=== PATIENT | female | born 1995 ===

== ENCOUNTER 2022-02-03 03:43 | Outpatient (CLI) | payer BC, SELFPAY ==
[2022-02-04 11:02] LABS: Measles IgG Antibody Positive (See Note); Mumps Antibody IgG Positive (See Note); Rubella IgG Ab (UVM) Positive (See Note); Varicella IgG Antibody Positive (See Note)
[2022-02-04 15:17] LABS: Chlamydia Result Negative (Negative); GC Result Negative (Negative)
[2022-02-05 16:12] LABS: Syphilis IgG w/Reflex Nonreactive (Nonreactive)
[2022-02-07 13:56] LABS: TB Interpretation Positive (Negative); TB2 Ag minus Nil 0.57 IU/mL
== END 2022-02-03 03:44 | disposition home or self-care (01) ==
LOC: LBO 03:44
PROVIDERS: Visit Provider Family Medicine
DX: Z11.1 Encounter for screening for respiratory tuberculosis (principal); Z11.3 Encounter for screening for infections with a predominantly sexual mode of transmission; Z11.59 Encounter for screening for other viral diseases
CPT/HCPCS: 36415; 86787; 87491; 87591; 86480; 86735; 86762; 86765; 86780

== ENCOUNTER 2022-02-14 14:14 | Outpatient (CLI) | payer BC, SELFPAY ==
--- NOTE | 2022-02-14 14:13 | DI.RAD_ITS ---
Exam(s) XR CHEST 2V PA LATERAL EXAM: XR CHEST 2V PA LATERAL CLINICAL HISTORY: TB SCREEN POSITIVE, EVALUATE FOR SIGNS OF ACTIVE TB. TECHNIQUE: 2D digital imaging was performed. COMPARISON: No exams were available for comparison FINDINGS: 2 views: Heart size is normal. The mediastinum is not widened. Lungs are clear. No infiltrates nor pleural effusions. IMPRESSION: No acute pulmonary findings. DATA REPOSITORY: RADIATION DOSE DELIVERED:
== END 2022-02-14 14:34 ==
PROVIDERS: Visit Provider Family Medicine
DX: R76.11 Nonspecific reaction to tuberculin skin test without active tuberculosis (principal)
CPT/HCPCS: 71046

== ENCOUNTER 2022-02-16 10:33 | Outpatient (REF) | payer BC, SELFPAY ==
[2022-02-16 16:40] LABS: Abs Immature Grans 0.02 10^3/uL (0.0-0.06); Absolute Basophil Count 0.03 10^3/uL (0.0-0.2); Absolute Eosinophil Count 0.17 10^3/uL (0.0-0.7); Absolute Monocyte Count 0.39 10^3/uL (0.1-0.8); Absolute Neutrophil Count 3.85 10^3/uL (1.2-6.7); Basophils % 0.5; Eosinophils % 2.6; HCT 41.3 % (36.0-46.0); Immature Grans % 0.3; MCH 26.2 pg (27.0-33.0); MCHC 31.5 % (32.0-36.0); MCV 83.3 fL (80-95); MPV 11.9 fL (8.0-11.0); Monocytes % 5.9; Neutrophils % 58.7; Nucleated RBC 0 %; Platelet Count 276 10^3/uL (130-400); RBC 4.96 10^6/uL (3.93-5.22); RDW 13.1 % (11.7-14.6); RDW-SD 39.6 fL; WBC 6.56 10^3/uL (4.4-10.8)
[2022-02-16 17:02] LABS: ALT 26 U/L (14-59); AST 19 U/L (15-37); Albumin 3.9 g/dL (3.4-5.0); Alkaline Phosphatase 82 U/L (46-116); Anion Gap 9.9 mmol/L (3-11); BUN 13 mg/dL (7-18); Bilirubin, Total 0.2 mg/dL (0.2-1.0); CO2 26.1 mmol/L (21.0-32.0); CREATININE 0.6 mg/dL (0.55-1.02); Calcium 9.5 mg/dL (8.5-10.1); Chloride 105 mmol/L (98-107); Glucose 85 mg/dL (74-106); Potassium 4.4 mmol/L (3.5-5.1); Sodium 141 mmol/L (136-145); Total Protein 7.6 g/dL (6.4-8.2)
[2022-02-17 09:53] LABS: HBs Antibody, Quant <3.1 mIU/mL (See Note); Hepatitis B Surface Ab Negative (See Note)
[2022-02-17 11:09] LABS: HIV-1/2 Ag & Ab Screen Negative (Negative)
[2022-02-17 11:16] LABS: Hepatitis C Ab w Rflx HCV PCR Negative (Negative)
[2022-02-17 11:18] LABS: Hep A Total Ab w Rflx IgM Positive (Negative)
[2022-02-17 12:33] LABS: Hepatitis B Surface Ag Negative (Negative)
[2022-02-17 13:44] LABS: Hep A Antibody IgM Negative (Negative)
== END 2022-02-16 10:34 | disposition home or self-care (01) ==
LOC: NCHCN 10:33
PROVIDERS: Visit Provider Family Medicine
DX: Z22.7 Latent tuberculosis (principal); Z51.81 Encounter for therapeutic drug level monitoring; Z11.59 Encounter for screening for other viral diseases; Z11.4 Encounter for screening for human immunodeficiency virus [HIV]; Z00.00 Encounter for general adult medical examination without abnormal findings
CPT/HCPCS: 80053; 86706; 86709; 86803; 87340; 87389; 85025

== ENCOUNTER 2023-10-02 18:13 | Outpatient (REF) | payer BC, SELFPAY ==
[2023-10-02 19:35] LABS: Hemoglobin A1C 5.6 % (<5.7)
[2023-10-02 19:42] LABS: ALT 25 U/L (14-59); AST 21 U/L (15-37); Albumin 3.9 g/dL (3.4-5.0); Alkaline Phosphatase 74 U/L (46-116); Anion Gap 8.8 mmol/L (3-11); BUN 12 mg/dL (7-18); Bilirubin, Total 0.3 mg/dL (0.2-1.0); CO2 26.2 mmol/L (21.0-32.0); CREATININE 0.9 mg/dL (0.55-1.02); Calcium 10.1 mg/dL (8.5-10.1); Chloride 104 mmol/L (98-107); Estimated GFR 88.75 (mL/min/1.73m2); Glucose 101 mg/dL (74-106); Potassium 3.9 mmol/L (3.5-5.1); Sodium 139 mmol/L (136-145); Total Protein 8.3 g/dL (6.4-8.2)
== END 2023-10-02 18:14 | disposition home or self-care (01) ==
LOC: NCHCN 18:13
PROVIDERS: Visit Provider Nurse Practitioner Family
DX: Z00.00 Encounter for general adult medical examination without abnormal findings (principal); Z13.1 Encounter for screening for diabetes mellitus
CPT/HCPCS: 80053; 83036

== ENCOUNTER 2025-05-20 12:30 | Outpatient (CLI) | payer OTHER, SELFPAY ==
[2025-05-20 13:08] LABS: TSH (W/Ref FT4) 2.28 uIU/mL (0.36-3.74)
== END 2025-05-20 12:31 | disposition home or self-care (01) ==
LOC: LBO 12:31
PROVIDERS: Visit Provider Obstetrics & Gynecology
DX: N93.8 Other specified abnormal uterine and vaginal bleeding (principal)
CPT/HCPCS: 36415; 84146; 84443